=== PATIENT | male | born 1995 | race Caucasian/White ===

== ENCOUNTER 2019-09-29 10:29 | Outpatient (CLI) | payer BC, OTHER ==
[2019-09-29] MEDS ORDERED: Magnevist 469MG/ML 20 ML VIAL ONE (12:57)
--- NOTE | 2019-09-29 13:53 | MRI ---
MRI OF LUMBAR SPINE PERFORMED WITH AND WITHOUT CONTRAST ENHANCEMENT: HISTORY: Low back pain radiating to left leg. History of previous surgery in 2014. FINDINGS: Vertebral bodies are normal in height. There are some disk desiccation changes of L4-5 and L5-S1 and some mild disk narrowing at these levels. No significant periaortic adenopathy. The visualized por tions of the kidneys appear essentially unremarkable. T12-L1: Unremarkable. L1-2: Degenerative facet changes without canal or foraminal stenosis. L2-3: There are degenerative facet changes also present at this level. There is no significant servando l or foraminal narrowing. L3-4: Canal is borderline narrowed mainly related to degenerative facet and ligamentous hypertrophic changes. No foraminal stenosis. L4-5: There is a large left paracentral disk protrusion and extrusion with extruded disk material ex tending inferior along the left lateral recess and even to the level of the left L5 foramen. This is associated with a moderate degree of canal stenosis. There are fairly prominent degenerative facet changes present. No significant right-sided foraminal narrowing or left foraminal narrowing. L5-S1: There is a disk bulge at this level. There appears to be a small left lateral protrusion pre sent. Although there appears to be some enhancement in this region, this may just represent some pos toperative scarring. IMPRESSION: 1. Large left paracentral and lateral disk protrusion with inferior disk extrusion obliterating the lateral recess and even extending into the left L5 foramen. 2. Some left-sided changes at the L5-S1 level which are felt to be more postoperative in nature. POS: [facility]
== END 2019-09-29 10:30 | disposition home or self-care (01) ==
LOC: BICMRI 10:29
PROVIDERS: ATTEND Anesthesiology Pain Medicine
DX: M51.16 Intervertebral disc disorders with radiculopathy, lumbar region (principal); Z98.890 Other specified postprocedural states
CPT/HCPCS: 72158; A9579